=== PATIENT | female | born 1960 | race Caucasian/White ===

== ENCOUNTER 2018-08-15 15:45 | Outpatient (REF) | payer MEDICAID, SELFPAY ==
[2018-08-16 00:34] LABS: Bacteria Rare HPF (Negative); C & S Indicated? No; Crystals Negative HPF (Negative); Epithelial Cells Rare HPF (Negative); Mucus Negative (Negative); RBC 0-2 (0-2); WBC 0-2 HPF (0-5)
== END 2018-08-15 16:05 ==
LOC: NCHCN 15:45
PROVIDERS: PCP Physician Assistant Medical; Visit Provider Physician Assistant Medical
DX: R31.21 Asymptomatic microscopic hematuria (principal)
CPT/HCPCS: 81015

== ENCOUNTER 2018-08-17 00:03 | Outpatient (CLI) | payer MEDICAID, SELFPAY ==
--- NOTE | 2018-08-17 08:15 | MERGEMPI_ITS ---
*The * *[facility]* [address] [place] [address] Myocardial Perfusion Imaging - SPECT Rodrigo protocol Date of study: 08/17/2018 *PATIENT PRESENTATION* Height: 172.7cm (68in) Blood Pressure: Weight: 88.6kg (195lb) BSA: 2.09m^2 Referring physician: Ela Beard Ordering physician: Deandre Arzola V Impressions: Normal study after maximal exercise. Summary: 1. Myocardial perfusion imaging: No myocardial perfusion defects noted. 2. The calculated left ventricular ejection fraction after stress: 73%. LV global systolic function is normal. No left ventricular regional motion abnormality. 3. Stress: The target heart rate was achieved. Indication: RO7.9. History: REASON FOR TESTING: IN MID JULY PATIENT HAD 4-5 DAYS OF CONSISTANT AND PERSISTANT CHEST TIGHTNESS/PRESSURE/PAIN. TOWARD THE END OF THE 4 DAYS SHE REPORTS NAUSEA AND HEADACHE. SHE DENIES CHEST PAIN UPON ARRIVAL TODAY. SIGNIFICANT PAST MEDICAL HISTORY: STAGE 4 CIRROSIS. SMOKING STATUS: QUIT 1986. SMOKED FOR 8 YEARS 1 PPD. EXERCISE ROUTINE: DAILY ADL'S. Risk factors: Family history of coronary artery disease. Obesity. Dyslipidemia. ALLERGIES: CODEINE MEDICATIONS: SUPPLEMENTS. Imaging Technique: Protocol: Rodrigo protocol. Acquisition: Gated SPECT; 1 day - rest/stress. The patient was imaged in the supine position. Attenuation correction used. Isotope administration: - Rest. Tc[99m]-sestamibi. Dose: 10.3mCi. Injection time: 08:45 AM. Injection to stress time: 00:45. - Stress. Tc[99m]-sestamibi. Dose: 31.3mCi. Injection time: 11:15 AM. 1-2 min before end of exercise Baseline ECG: SINUS RHYTHM. HR 70 BPM. INVERTED T-WAVES IN LEAD AVL AND V1. PVC. Stress protocol: + +---+ + !Stage !HR !BP (mmHg) ! + +---+ + !Baseline supine !70 !118/80 (93) ! + +---+ + !Baseline standing !84 !126/80 (95) ! + +---+ + !Stage I; 1.7mph, 10degrees; 3 min !126!130/78 (95) ! + +---+ + !Stage II; 2.5mph, 12degrees; 3 min !135!140/70 (93) ! + +---+ + !Stage III; 3.4mph, 14degrees; 3 min!140!142/80 (101)! + +---+ + !Stage IV; 4.2mph, 16degrees; 3 min !143!170/80 (110)! + +---+ + !Recovery; 1 min !129!124/74 (91) ! + +---+ + !Recovery; 3 min !95 !120/80 (93) ! + +---+ + !Recovery; 6 min !92 !120/80 (93) ! + +---+ + !Recovery; 9 min !87 !100/76 (84) ! + +---+ + * Stress results: MODIFIED RODRIGO STRESS TEST ENDED IN 13 MINUTES 4 SECONDS DUE TO CHEST DISCOMFORT. PATIENT UNABLE TO SAFELY TRANSITION TO STAGE 3, PER PATIENT DUE TO FOOT NEUROPATHY. PATIENT REACHED TARGET HEART RATE AT 8 MINUTES 49 SECONDS OF MODIFIED STAGE 3 (GRADE 14/SPEED 2.5 MPH). NORMAL HEART RATE AND BLOOD PRESSURE RESPONSE TO EXERCISE. MAX HEART RATE: 143 88 % OF TARGET HEART RATE ACHIEVED. MET'S: 7.74 OCCASIONAL PVC'S AT BASELINE AND DURING TESTING. DULL CHEST PAIN ( 2/10) AT 11 MINUTES 10 SECONDS EXERCISE. DULL CHEST PAIN (3/10) AT 13 MINUTES EXERCISE. DULL CHEST PAIN (2/10) AT 1 MINUTE RECOVERY. CHEST PAIN SUBSIDED AT 4 MINUTES RECOVERY. FLUTTERING HEART SENSATION REPORTED AT 4 MINUTES RECOVERY. NO SIGNIFICANT ST SEGMENT CHANGES. FUNCTIONAL CAPACITY: ABOVE AVERAGE (ALTHOUGH THIS IS A MODIFIED RODRIGO TEST). Maximal heart rate during stress was 143bpm (88% of maximal predicted heart rate). The maximal predicted heart rate was 162bpm. The target heart rate was achieved. The rate-pressure product for the peak heart rate and blood pressure was 16121zr Hg/min. Myocardial perfusion: Imaging information: gated. Left ventricular size is normal. No myocardial perfusion defects noted. Ventricular Function (Wall Motion): The calculated left ventricular ejection fraction after stress: 73%. LV global systolic function is normal. No left ventricular regional motion abnormality. Study data: Ela Beard MD supervised and was readily available during the procedure. This study was interpreted by [facility]. Study status: Routine. Consent: The risks, benefits, and alternatives to the procedure were explained to the patient and informed consent was obtained. Procedure: Initial setup. A baseline ECG was recorded. Surface ECG leads and manual cuff blood pressure measurements were monitored. Heart sounds: Normal. Lung sounds: Normal. Treadmill exercise testing was performed using the Rodrigo protocol. Study completion: All catheters inserted during the procedure were removed. The patient tolerated the procedure well and was discharged from the lab. Discharge: The patient left the laboratory in stable condition. Birthdate: Patient birthdate: 1960. Sex: Gender: female. Study date: Study date: 08/17/2018. Study time: 08:15 AM. Signature Documentation: - The imaging portion of this study was interpreted by Nuclear Airborne Operations Manager Ela Beard MD. - The imaging portion of this study was interpreted by Nuclear Radiologist Sumit Medeiros MD. - The Stress ECG portion of this study was interpreted by Ela Beard MD. Electronically signed by Ela Beard 08/17/2018 12:44
== END 2018-08-17 00:23 ==
PROVIDERS: PCP Physician Assistant Medical; Visit Provider Physician Assistant Medical
DX: R07.89 Other chest pain (principal); E78.5 Hyperlipidemia, unspecified; I10 Essential (primary) hypertension; E11.9 Type 2 diabetes mellitus without complications; Z87.891 Personal history of nicotine dependence; Z82.49 Family history of ischemic heart disease and other diseases of the circulatory system
CPT/HCPCS: 78452; 93017

== ENCOUNTER 2019-02-07 11:08 | Outpatient (REF) | payer MEDICAID, SELFPAY ==
[2019-02-07 19:50] LABS: ALT 41 U/L (12-78); AST 26 U/L (15-37); Albumin 3.9 g/dL (3.4-5.0); Alkaline Phosphatase 109 U/L (46-116); Bilirubin, Total 0.9 mg/dL (0.2-1.0); Calculated LDL 170 mg/dL; Cholesterol 246 mg/dL (50-200); HDL Cholesterol 55 mg/dL (40-60); Total Protein 7.3 g/dL (6.4-8.2); Triglyceride 105 mg/dL (30-150)
[2019-02-07 20:20] LABS: Bilirubin, Direct 0.15 mg/dL (0.00-0.20)
== END 2019-02-07 11:28 ==
LOC: NCHCN 11:08
PROVIDERS: PCP Physician Assistant Medical; Visit Provider Nurse Practitioner Family
DX: K74.60 Unspecified cirrhosis of liver (principal); Z13.220 Encounter for screening for lipoid disorders
CPT/HCPCS: 80061; 80076; 83721

== ENCOUNTER 2019-03-21 18:53 | Outpatient (REF) | payer MEDICAID, SELFPAY ==
[2019-03-26 12:33] LABS: Helicobacter pylori Ag, Feces Negative (NEGAT)
== END 2019-03-21 19:13 ==
LOC: NCHCN 18:53
PROVIDERS: PCP Nurse Practitioner Family; Visit Provider Nurse Practitioner Family
DX: R10.9 Unspecified abdominal pain (principal)
CPT/HCPCS: 87338

== ENCOUNTER 2020-03-06 07:45 | Day surgery (SDC) | payer MEDICAID, SELFPAY ==
[2020-03-06 07:50] VITALS: BP 131/80; PULSE 79; RESP 16; TEMP 36.5; O2SAT 96
--- NOTE | 2020-03-06 08:27 | W.PM.DSUDISC ---
Discharge Plan Disposition Patient Disposition: HOME Condition: Good Discharge Details Attending Provider: Kris Guillen Primary Care Provider: Simran Schmidt Home Meds and New Rx's Prescriptions: No Action folic acid 0.4 MG tablet 0.4 mg PO DAILY RF: 0 esomeprazole magnesium [Nexium] 40 MG capsule,delayed release(DR/EC) 40 mg PO DAILY RF: 0 duloxetine [Cymbalta] 20 MG capsule,delayed release(DR/EC) 20 mg PO DAILY RF: 0 Fish Oil 1 EACH capsule 1 ea PO DAILY RF: 0 CHROMIUM GTF 200 mcg PO DAILY RF: 0 metoprolol succinate 25 MG tablet extended release 24 hr 25 mg PO DAILY RF: 0 cod liver oil Oil 15 ml PO DAILY RF: 0 Discharge Instructions Stand Alone Forms: Post-op Topical Cataract, Tierney Montague (DSU) Discharge Orders Discharge Orders: Discharge Order (Routine); Ordered 03/06/20 Ordered By: Kris Guillen DS: Diagnosis Discharge Diagnosis (1) Nuclear sclerotic cataract of right eye: Status: Resolved
[2020-03-06] MEDS: Povidone-Iodine Ophth 30 ML BTL ×2 (08:28→08:41)
[2020-03-06] MEDS: Tetracaine 0.5% 4 ML BTL OD (08:28)
[2020-03-06] MEDS: Balanced Salt Soln.-PLUS 500 ML BAG ×2 (08:29→08:44)
[2020-03-06] MEDS: Lidocaine 1% Pres-Free 5 ML VIAL ×2 (08:30→08:44)
[2020-03-06] MEDS: Lidocaine 2% Jelly 6 ML SYR ×2 (08:31→08:41)
[2020-03-06] MEDS: Moxifloxacin-PF 1 MG/ML VIAL ×2 (08:32→08:50)
--- NOTE | 2020-03-06 09:05 | ROE_ITS ---
Date of service: 03/06/20 Time of Service: 09:05 Operative Note Operative Note DATE OF PROCEDURE: 03/06/20 PRE-OP DIAGNOSIS: Nuclear cataract, right eye POST-OP DIAGNOSIS: same PROCEDURE: Cataract extraction using phacoemulsification with intraocular lens implant, right eye SURGEON: Kris Guillen ANESTHESIA: MAC and local (sub-tenon's anesthetic infiltration) ESTIMATED BLOOD LOSS: 0 PATHOLOGY: none sent COMPLICATIONS: None Patient was transported to: same day Patient's condition: stable Implants: Aleksandr and Aleksandr Vision / [employer] Tecnis ZCB00 intr aocular lens Indications: Progressive decreased vision due to cataract, right eye Procedure Description: CATARACT SURGERY OPERATIVE REPORT PREOPERATIVE DIAGNOSIS: Nuclear cataract, right eye POSTOPERATIVE DIAGNOSIS: Same OPERATION: Cataract extraction using phacoemulsification with posterior chamber intraocular lens implant, right eye. IOL: IOL Cylinder Valve Repairer/Model: [employer] Vision / RIKY Tecnis ZCB00 IOL Power: + 20.0 diopters IOL Serial Number: [id number] Optic Diameter: 6.0mm Haptic/Overall Diameter: 13.0mm PHACO INFO: Germain [employer] Mobileurion Vision System with OZil and Active Fluidics Cumulative Dispersed Energy (CDE): 0.26 seconds SURGEON: Kris Guillen MD, KIMMIE ANESTHESIA: Monitored Anesthesia Care (MAC), with local sub-tenon's anesthetic infiltration COMPLICATIONS: None SPECIMENS: None INDICATIONS FOR PROCEDURE: The patient is a 50 history of diminished visual acuity in her right eye. She has a moderate nuclear cataract. The cataract proceed. PROCEDURE: The correct surgical eye was identified and marked as the right eye and the pupil was dilated in the preoperative area using mydriatics and cycloplegics. The dilated pupil size was 8.0 mm. Oral sedation was administered in the form of an Imprimis MKO Melt (midazolam 3mg/ketamine 25mg/ondansetron 2mg). The patient was brought to the operating room where cardiopulmonary monitoring was instituted and surgical time-out was performed, confirming the correct operative eye and IOL power. Topical anesthesia was administered and ophthalmic povidone-iodine 5% was instilled into the conjunctival fornices. Lidocaine gel was applied to the cornea and the eliane-ocular area was prepped with Betadine 10% solution and draped in the usual sterile fashion for intraocular surgery, including an aperture drape. A Tegaderm transparent film dressing was cut in half and used to cover the lashes and lid margins. Care was taken to sequester the lashes and lid margins under the Tegaderm dressing. A lid speculum was placed between the lids of the operative eye and the Rubia-Jenni operating microscope was maneuvered into position. Carlene scissors were then used to make a conjunctival buttonhole approximately 6mm posterior to the limbus in the inferonasal quadrant. Blunt dissection was c arried out to expose bare sclera, and a blunt-tipped sub-tenon?s anesthesia cannula was introduced and passed posteriorly along the globe where non- preserved plain lidocaine was injected into posterior sub-Tenon?s space. A sideport knife was used to make a paracentesis port inferiortemporally. Intraocular phenylephrine/lidocaine was injected into the anterior chamber. The anterior chamber was then filled with Healon Pro. A 2.4mm keratome knife was used to create a half-thickness groove at the limbus and then to construct a three-plane near-clear corneal tunnel extending 2.0mm into clear cornea in the superiortemporal position. . A flap was raised on the anterior capsule and capsulorhexis forceps were used to complete a continuous curvilinear capsulorhexis of 5.5 mm. Balanced salt solution was then used to perform cortical cleaving hydrodissection and nuclear hydrodelineation until the lens could be freely rotated within the capsular bag. The lens nucleus was then disassembled and removed within the capsular bag and iris plane using phacoemulsification. Residual cortical material was removed using the I/A handpiece. The posterior capsule was carefully polished to remove as much residual lens epithelial cells as safely possible. The capsular bag was then inflated and the anterior chamber deepened with viscoelastic. The lens implant described above was inserted into the capsular bag using the RIKY [place] Injector. A Kuglen hook was used to dial the IOL into position. Residual viscoelastic was then removed first from posterior to the IOL, then from the anterior chamber using the I/A handpiece. The lens implant was noted to center nicely within the capsular bag. The incisions were stromally hydrated, and the anterior chamber was reformed using BSS. Then 0.5cc of moxifloxacin 1.0mg/ml were injected into the capsular bag and anterior chamber. The incisions were checked with a Weck spear and found to be secure. Several drops of ophthalmic povidone-iodine 5% were then applied to the eye followed by two drops of Imprimis combination prednisolone/moxifloxacin/nepafenac solution. The drapes were removed and a clear plastic protective eye shield was placed over the eye. The patient was then returned to Same Day Surgery in stable condition.
== END 2020-03-06 09:40 | disposition home or self-care (01) ==
PROVIDERS: PCP Nurse Practitioner Family; Visit Provider Ophthalmology
PROC: (CPT 66984; principal; 2020-03-06 09:30)
DX: H25.11 Age-related nuclear cataract, right eye (principal)
CPT/HCPCS: 66984; V2632

== ENCOUNTER 2020-03-20 09:01 | Day surgery (SDC) | payer MEDICAID, SELFPAY ==
[2020-03-20 09:09] VITALS: BP 128/82; PULSE 80; RESP 20; TEMP 36.5; O2SAT 96
--- NOTE | 2020-03-20 09:37 | W.PM.DSUDISC ---
Discharge Plan Disposition Patient Disposition: HOME Condition: Good Discharge Details Attending Provider: Kris Guillen Primary Care Provider: Simran Schmidt Home Meds and New Rx's Prescriptions: No Action folic acid 0.4 MG tablet 0.4 mg PO DAILY RF: 0 Fish Oil 1 EACH capsule 1 ea PO DAILY RF: 0 CHROMIUM GTF 200 mcg PO DAILY RF: 0 cod liver oil Oil 15 ml PO DAILY RF: 0 Discharge Instructions Stand Alone Forms: Post-op Topical Cataract, Tierney Montague (DSU) Discharge Orders Discharge Orders: Discharge Order (Routine); Ordered 03/20/20 Ordered By: Kris Guillen DS: Diagnosis Discharge Diagnosis (1) Nuclear sclerotic cataract of left eye: Status: Resolved
[2020-03-20] MEDS: Tetracaine 0.5% 4 ML BTL OS (09:50)
[2020-03-20] MEDS: Balanced Salt Soln.-PLUS 500 ML BAG (09:50)
[2020-03-20] MEDS: Lidocaine 1% Pres-Free 5 ML VIAL (09:51)
[2020-03-20] MEDS: Lidocaine 2% Jelly 6 ML SYR (09:52)
[2020-03-20] MEDS: Moxifloxacin-PF 1 MG/ML VIAL (09:52)
[2020-03-20] MEDS: Povidone-Iodine Ophth 30 ML BTL (09:53)
--- NOTE | 2020-03-20 10:15 | ROE_ITS ---
Date of service: 03/20/20 Time of Service: 10:15 Operative Note Operative Note DATE OF PROCEDURE: 03/20/20 PRE-OP DIAGNOSIS: Nuclear/cortical cataract, left eye POST-OP DIAGNOSIS: same PROCEDURE: Cataract extraction using phacoemulsification with intraocular lens implant, left eye SURGEON: Kris Guillen ANESTHESIA: MAC and local (sub-tenon's anesthetic infiltration) PATHOLOGY: none sent COMPLICATIONS: None Patient was transported to: same day Patient's condition: stable Implants: Aleksandr and Aleksandr Vision / [employer] Tecnis ZCB00 Indications: Progressive decreased vision due to cataract, left eye Procedure Description: CATARACT SURGERY OPERATIVE REPORT PREOPERATIVE DIAGNOSIS: Nuclear/cortical cataract, left eye POSTOPERATIVE DIAGNOSIS: Same OPERATION: Cataract extraction using phacoemulsification with posterior chamber intraocular lens implant, left eye. IOL: IOL Shape Hand/Model: J&J Vision / RIKY Tecnis ZCB00 IOL Power: + 20.0 diopters IOL Serial Number: [id number] Optic Diameter: 6.0mm Haptic/Overall Diameter: 13.0mm PHACO INFO: Germain [employer]urion Vision System with OZil and Active Fluidics Cumulative Dispersed Energy (CDE): 0.7% seconds SURGEON: Kris Guillen MD, KIMMIE ANESTHESIA: Monitored Anesthesia Care (MAC), with local sub-tenon's anesthetic infiltration COMPLICATIONS: None SPECIMENS: None INDICATIONS FOR PROCEDURE: The patient is a 59-year-old lady with history of progressive decreased vision in both eyes bilateral cortical cataract she significantly symptomatic that she desired She has already undergone cataract surgery in the right eye and is doing well postoperatively PROCEDURE: The correct surgical eye was identified and marked as the left eye and the pupil was dilated in the preoperative area using mydriatics and cycloplegics. The dilated pupil size was 7.0 mm. Oral sedation was administered in the form of an Imprimis MKO Melt (midazolam 3mg/ketamine 25mg/ondansetron 2mg). The patient was brought to the operating room where cardiopulmonary monitoring was instituted and surgical time-out was performed, confirming the correct operative eye and IOL power. Topical anesthesia was administered and ophthalmic povidone-iodine 5% was instilled into the conjunctival fornices. Lidocaine gel was applied to the cornea and the eliane-ocular area was prepped with Betadine 10% solution and draped in the usual sterile fashion for intraocular surgery, including an aperture drape. A Tegaderm transparent film dressing was cut in half and used to cover the lashes and lid margins. Care was taken to sequester the lashes and lid margins under the Tegaderm dressing. A lid speculum was placed between the lids of the operative eye and the Rubia-Jenni operating microscope was maneuvered into position. Carlene scissors were then used to make a conjunctival buttonhole approximately 6mm posterior to the limbus in the inferonasal quadrant. Blunt dissection was carried out to expose bare sclera, and a blunt-tipped sub-tenon?s anesthesia cannula was introduced and passed posteriorly along the globe where non- preserved plain lidocaine was injected into posterior sub-Tenon?s space. A sideport knife was used to make a paracentesis port superior/superiortemporally. Intraocular phenylephrine/lidocaine was injected into the anterior chamber. The anterior chamber was then filled with Healon Pro. A 2.4mm keratome knife was used to create a half-thickness groove at the limbus and then to construct a three-plane near-clear corneal tunnel extending 2.0mm into clear cornea in the temporal position. . A flap was raised on the anterior capsule and capsulorhexis forceps were used to complete a continuous curvilinear capsulorhexis of 5.0 mm. Balanced salt solution was then used to perform cortical cleaving hydrodissection and nuclear hydrodelineation until the lens could be freely rotated within the capsular bag. The lens nucleus was then disassembled and removed within the capsular bag and iris plane using phacoemulsification. Residual cortical material was removed using the 45-degree angled silicone I/A tip with 0.3mm port. The posterior capsule was carefully polished to remove as much residual lens epithelial cells as safely possible. The capsular bag was th en inflated and the anterior chamber deepened with viscoelastic. The lens implant described above was inserted into the capsular bag using the RIKY [place] Injector. A Kuglen hook was used to dial the IOL into position. Residual viscoelastic was then removed first from posterior to the IOL, then from the anterior chamber using the I/A handpiece. The lens implant was noted to center nicely within the capsular bag. The incisions were stromally hydrated, and the anterior chamber was reformed using BSS. Then 0.5cc of moxifloxacin 1.0mg/ml were injected into the capsular bag and anterior chamber. The incisions were checked with a Weck spear and found to be secure. Several drops of ophthalmic povidone-iodine 5% were then applied to the eye followed by two drops of Imprimis combination prednisolone/moxifloxacin/nepafenac solution. The drapes were removed and a clear plastic protective eye shield was placed over the eye. The patient was then returned to Same Day Surgery in stable condition.
[2020-03-20 10:41] VITALS: BP 125/78; PULSE 73; RESP 16; TEMP 36.5; O2SAT 97
== END 2020-03-20 10:40 | disposition home or self-care (01) ==
PROVIDERS: PCP Nurse Practitioner Family; Visit Provider Ophthalmology
PROC: (CPT 66984; principal; 2020-03-20 11:30)
DX: H25.12 Age-related nuclear cataract, left eye (principal); H25.012 Cortical age-related cataract, left eye; Z96.1 Presence of intraocular lens; Z98.41 Cataract extraction status, right eye
CPT/HCPCS: 66984; V2632

== ENCOUNTER 2021-01-07 12:55 | Outpatient (REF) | payer MEDICAID, SELFPAY ==
[2021-01-07 18:55] LABS: Abs Immature Grans 0.01 10^3/uL (0.0-0.06); Absolute Basophil Count 0.03 10^3/uL (0.0-0.2); Absolute Lymphocyte Count 2.29 10^3/uL (1.2-3.4); Absolute Monocyte Count 0.54 10^3/uL (0.1-0.8); Absolute Neutrophil Count 3.72 10^3/uL (1.2-6.7); Basophils % 0.4; Eosinophils % 2.9; HCT 43.7 % (36.0-46.0); HGB 14.7 g/dL (11.2-15.7); Immature Grans % 0.1; Lymphocytes % 33.7; MCH 31.3 pg (27.0-33.0); MCHC 33.6 % (32.0-36.0); MPV 11.2 fL (8.0-11.0); Neutrophils % 54.9; Nucleated RBC 0 %; Platelet Count 195 10^3/uL (130-400); RDW 11.9 % (11.7-14.6); RDW-SD 40.8 fL; WBC 6.79 10^3/uL (4.4-10.8)
[2021-01-07 19:13] LABS: Iron 111 ug/dL (50-170); Total Iron Binding Capacity 287 ug/dL (250-450); Transferrin Sat 39 % (15-50)
[2021-01-07 19:20] LABS: Hemoglobin A1C 7.6 % (<5.7)
[2021-01-07 19:26] LABS: Microalb ug/mg Crea 5.8 ug/mg Cr
[2021-01-07 19:39] LABS: ALT 58 U/L (14-59); AST 33 U/L (15-37); Albumin 3.9 g/dL (3.4-5.0); Alkaline Phosphatase 122 U/L (46-116); Anion Gap 9.8 mmol/L (3-11); BUN 9 mg/dL (7-18); Bilirubin, Total 0.6 mg/dL (0.2-1.0); CO2 25.2 mmol/L (21.0-32.0); CREATININE 0.8 mg/dL (0.55-1.02); Calcium 8.9 mg/dL (8.5-10.1); Chloride 103 mmol/L (98-107); Ferritin 99 ng/mL (8-252); Glucose 203 mg/dL (74-106); LDL CHOLESTEROL 179 mg/dL (<100); Magnesium 2.1 mg/dL (1.8-2.4); Potassium 4.5 mmol/L (3.5-5.1); Sodium 138 mmol/L (136-145); TSH (W/Ref FT4) 1.05 uIU/mL (0.36-3.74); Total Protein 7.7 g/dL (6.4-8.2); Vitamin B12 841 pg/mL (193-986)
== END 2021-01-07 12:56 | disposition home or self-care (01) ==
LOC: NCHCN 12:55
PROVIDERS: PCP Nurse Practitioner Family; Visit Provider Physician Assistant
DX: E11.65 Type 2 diabetes mellitus with hyperglycemia (principal); E11.40 Type 2 diabetes mellitus with diabetic neuropathy, unspecified; M62.838 Other muscle spasm; E78.5 Hyperlipidemia, unspecified; K70.30 Alcoholic cirrhosis of liver without ascites; M79.7 Fibromyalgia
CPT/HCPCS: 80053; 83721; 82043; 82570; 82607; 82728; 83036; 83540; 83550; 83735; 84443; 85025

== ENCOUNTER 2021-10-08 11:29 | Outpatient (REF) | payer MEDICAID, SELFPAY ==
--- NOTE | 2021-10-08 11:15 | PAPFT_PTH ---
PATIENT: Veronica Goel LOC: [facility]#:[id number] AGE/SX: 61/F ROOM: RE10/08/[address]: Beth Posada : 1960 BED: DIS: 10/08/2021 SPEC #: [id number] RECD: 10/08/21 18:35 STATUS: CELIA REQ #: [id number] JULIET: 10/08/21 11:[address]: Beth Posada DEPT: [facility] Cytology RECD BY: Kiera Gruber ENTERED: 10/08/21 18:36 SP TYPE: PAPFT OTHR DR: Simran Schmidt Tissues: 1 - CX/ENDOCX FOR PAP SMEARS Procedures: PAP THIN PREP/UVM Screening HPV DNA PROBE Comments: [id number]
== END 2021-10-08 11:30 | disposition home or self-care (01) ==
LOC: NCHCN 11:29
PROVIDERS: PCP Nurse Practitioner Family; Visit Provider Physician Assistant
DX: Z12.4 Encounter for screening for malignant neoplasm of cervix (principal); Z11.51 Encounter for screening for human papillomavirus (HPV)
CPT/HCPCS: 88142; 87624

== ENCOUNTER 2021-10-08 16:50 | Outpatient (REF) | payer MEDICAID, SELFPAY ==
[2021-10-08 19:20] LABS: ALT 51 U/L (14-59); AST 37 U/L (15-37); Albumin 3.8 g/dL (3.4-5.0); Alkaline Phosphatase 113 U/L (46-116); Anion Gap 8.3 mmol/L (3-11); BUN 11 mg/dL (7-18); Bilirubin, Total 0.6 mg/dL (0.2-1.0); CO2 26.7 mmol/L (21.0-32.0); CREATININE 0.8 mg/dL (0.55-1.02); Calcium 9.1 mg/dL (8.5-10.1); Chloride 101 mmol/L (98-107); Glucose 150 mg/dL (74-106); Potassium 4.5 mmol/L (3.5-5.1); Sodium 136 mmol/L (136-145); Total Protein 7.6 g/dL (6.4-8.2)
[2021-10-08 19:23] LABS: COMMENT (LAB VIEW ONLY) 30.91 mg/dL
[2021-10-08 19:31] LABS: LDL CHOLESTEROL 189 mg/dL (<100)
== END 2021-10-08 16:51 | disposition home or self-care (01) ==
LOC: NCHCN 16:50
PROVIDERS: PCP Nurse Practitioner Family; Visit Provider Physician Assistant
DX: E11.65 Type 2 diabetes mellitus with hyperglycemia (principal); E78.5 Hyperlipidemia, unspecified
CPT/HCPCS: 80053; 83721; 82043; 82570

== ENCOUNTER 2022-11-25 16:19 | Outpatient (REF) | payer MEDICAID, SELFPAY ==
[2022-11-25 18:59] LABS: Abs Immature Grans 0.01 10^3/uL (0.0-0.06); Absolute Basophil Count 0.04 10^3/uL (0.0-0.2); Absolute Eosinophil Count 0.23 10^3/uL (0.0-0.7); Absolute Lymphocyte Count 2.33 10^3/uL (1.2-3.4); Absolute Monocyte Count 0.66 10^3/uL (0.1-0.8); Absolute Neutrophil Count 2.94 10^3/uL (1.2-6.7); Basophils % 0.6; Eosinophils % 3.7; HCT 42.8 % (36.0-46.0); HGB 14.7 g/dL (11.2-15.7); Immature Grans % 0.2; Lymphocytes % 37.5; MCH 32.1 pg (27.0-33.0); MCHC 34.3 % (32.0-36.0); MCV 93 fL (80-95); MPV 10.2 fL (8.0-11.0); Monocytes % 10.6; Neutrophils % 47.4; Platelet Count 197 10^3/uL (130-400); RBC 4.58 10^6/uL (3.93-5.22); WBC 6.21 10^3/uL (4.4-10.8)
[2022-11-25 19:12] LABS: INR 0.9 (0.9-1.1); Prothrombin Time 9.2 sec (9.3-11.0)
[2022-11-25 19:37] LABS: ALT 48 U/L (14-59); AST 32 U/L (15-37); Albumin 3.6 g/dL (3.4-5.0); Alkaline Phosphatase 116 U/L (46-116); Anion Gap 3.6 mmol/L (3-11); BUN 10 mg/dL (7-18); Bilirubin, Total 0.5 mg/dL (0.2-1.0); CO2 27.4 mmol/L (21.0-32.0); CREATININE 0.9 mg/dL (0.55-1.02); Calcium 9.1 mg/dL (8.5-10.1); Chloride 105 mmol/L (98-107); Estimated GFR 72.28 (mL/min/1.73m2); Glucose 99 mg/dL (74-106); Potassium 3.9 mmol/L (3.5-5.1); Sodium 136 mmol/L (136-145); Total Protein 7.9 g/dL (6.4-8.2)
== END 2022-11-25 16:20 | disposition home or self-care (01) ==
LOC: NCHCN 16:19
PROVIDERS: PCP Nurse Practitioner Family; Visit Provider Physician Assistant
DX: E11.65 Type 2 diabetes mellitus with hyperglycemia (principal); K70.30 Alcoholic cirrhosis of liver without ascites
CPT/HCPCS: 80053; 85025; 85610

== ENCOUNTER 2023-04-26 15:43 | Outpatient (REF) | payer MEDICAID, SELFPAY ==
[2023-04-27 18:08] LABS: Rheumatoid Factor <8.6 IU/mL (<12.0)
[2023-04-28 09:10] LABS: Cyclic Citrullinated Peptide <2.5 U/mL (<5.0)
[2023-04-28 13:47] LABS: ANA Interpretation Negative (Negative)
== END 2023-04-26 15:44 | disposition home or self-care (01) ==
LOC: NCHCN 15:43
PROVIDERS: PCP Nurse Practitioner Family; Visit Provider Physician Assistant
DX: M79.18 Myalgia, other site (principal); M79.7 Fibromyalgia; M54.2 Cervicalgia
CPT/HCPCS: 86200; 86038; 86431

== ENCOUNTER 2024-02-08 10:59 | Outpatient (CLI) | payer BC, SELFPAY ==
--- NOTE | 2024-02-08 09:30 | DI.RAD_ITS ---
Exam(s) XR KNEE LT 1V XR STANDING ALIGNMENT EXAM: XR STANDING ALIGNMENT and XR knee LT 1 V CLINICAL HISTORY: knee pain. TECHNIQUE: 2D digital imaging was performed. Five images were obtained. COMPARISON: CR XR KNEE COMPLETE MIN 4V LT from 01/05/2023 CR XR KNEE 1 OR 2V RT from 01/26/2023 CR XR KNEE COMPLETE MIN 4V LT from 12/27/2023 CR XR KNEE LT 1V from 02/08/2024 FINDINGS: BONES: The hips are well maintained. The right knee is well maintained with minimal joint space narr owing. In the left knee, there is marked narrowing of the lateral femoral tibial joint and mild narr owing of the medial femoral tibial joint. Osteophytes are seen both medially and laterally. There i s also narrowing of the patellofemoral joint. There is a small joint effusion. There is an old side plate and screws in the proximal tibia. The ankles are well maintained.There is no significant leg l ength discrepancy. SOFT TISSUE: Vascular calcifications are present. IMPRESSION: Degenerative changes in the knee, left greater than right as described. DATA REPOSITORY: RADIATION DOSE DELIVERED:
== END 2024-02-08 11:00 | disposition home or self-care (01) ==
LOC: DIORS 11:00
PROVIDERS: PCP Physician Assistant; Referring Provider Physician Assistant; Visit Provider Physician Assistant
DX: M25.562 Pain in left knee (principal); M25.561 Pain in right knee; M17.11 Unilateral primary osteoarthritis, right knee; M17.12 Unilateral primary osteoarthritis, left knee
CPT/HCPCS: 73560; 77073

== ENCOUNTER 2024-03-07 03:35 | Outpatient (CLI) | payer BC, SELFPAY ==
[2024-03-07 10:54] LABS: HCT 45.1 % (36.0-46.0); HGB 15.2 g/dL (11.2-15.7); MCHC 33.7 % (32.0-36.0); MCV 92 fL (80-95); MPV 9.6 fL (8.0-11.0); Platelet Count 177 10^3/uL (130-400); RDW 11.4 % (11.7-14.6); RDW-SD 38.9 fL; WBC 6.98 10^3/uL (4.4-10.8)
[2024-03-07 11:16] LABS: Anion Gap 8.6 mmol/L (3-11); BUN 8 mg/dL (7-18); CO2 26.4 mmol/L (21.0-32.0); CREATININE 0.9 mg/dL (0.55-1.02); Calcium 9.6 mg/dL (8.5-10.1); Chloride 100 mmol/L (98-107); Estimated GFR 71.83 (mL/min/1.73m2); Glucose 219 mg/dL (74-106); Potassium 4.1 mmol/L (3.5-5.1); Sodium 135 mmol/L (136-145)
== END 2024-03-07 03:36 | disposition home or self-care (01) ==
LOC: LBO 03:35
PROVIDERS: Physician Assistant; PCP Physician Assistant; Visit Provider Student in an Organized Health Care Education/Training Program
DX: M17.32 Unilateral post-traumatic osteoarthritis, left knee (principal); Z01.818 Encounter for other preprocedural examination; E11.9 Type 2 diabetes mellitus without complications
CPT/HCPCS: 36415; 80048; 85027

== ENCOUNTER 2024-03-29 15:44 | Outpatient (REF) | payer BC, SELFPAY ==
[2024-04-01 19:35] LABS: Fructosamine 298 mcmol/L (200 - 285)
== END 2024-03-29 15:45 | disposition home or self-care (01) ==
LOC: NCHCN 15:44
PROVIDERS: PCP Physician Assistant; Visit Provider Internal Medicine
DX: E11.65 Type 2 diabetes mellitus with hyperglycemia (principal)
CPT/HCPCS: 82985

== ENCOUNTER 2025-03-05 19:46 | Outpatient (REF) | payer BC, SELFPAY ==
[2025-03-05 20:37] LABS: ESR 20 mm/hr (0-30)
[2025-03-05 20:39] LABS: HCT 42.3 % (36.0-46.0); HGB 14.4 g/dL (11.2-15.7); MCH 31.1 pg (27.0-33.0); MCHC 34.0 % (32.0-36.0); MCV 91 fL (80-95); MPV 10.5 fL (8.0-11.0); Platelet Count 221 10^3/uL (130-400); RBC 4.63 10^6/uL (3.93-5.22); RDW 11.8 % (11.7-14.6); RDW-SD 39.6 fL; WBC 6.80 10^3/uL (4.4-10.8)
[2025-03-05 20:52] LABS: ALT 35 U/L (14-59); AST 31 U/L (15-37); Albumin 3.8 g/dL (3.4-5.0); Alkaline Phosphatase 92 U/L (46-116); Anion Gap 9.2 mmol/L (3-11); BUN 7 mg/dL (7-18); Bilirubin, Total 0.6 mg/dL (0.2-1.0); CO2 26.8 mmol/L (21.0-32.0); Calcium 9.2 mg/dL (8.5-10.1); Calculated LDL 145 mg/dL (<100); Chloride 100 mmol/L (98-107); Cholesterol 219 mg/dL (<200); Estimated GFR 96.52 (mL/min/1.73m2); Glucose 82 mg/dL (74-106); HDL Cholesterol 58 mg/dL (>or=50); Potassium 4.4 mmol/L (3.5-5.1); Sodium 136 mmol/L (136-145); Total Protein 7.6 g/dL (6.4-8.2); Triglyceride 82 mg/dL (<150)
[2025-03-05 23:19] LABS: C-Reactive Protein < 0.50 mg/dL (<or=0.5)
== END 2025-03-05 19:47 | disposition home or self-care (01) ==
LOC: NCHCN 19:46
PROVIDERS: PCP Physician Assistant; Visit Provider Internal Medicine
DX: K70.30 Alcoholic cirrhosis of liver without ascites (principal); E78.5 Hyperlipidemia, unspecified; M79.7 Fibromyalgia
CPT/HCPCS: 80053; 80061; 85027; 85652; 86140

== ENCOUNTER 2025-04-01 15:07 | Outpatient (REF) | payer BC, SELFPAY ==
--- NOTE | 2025-04-01 07:42 | SKI_PTH ---
PATIENT: Veronica Goel LOC: [facility] U#:[id number] AGE/SX: 64/F ROOM: RE04/01/[address]: Matty Oropeza MD : 1960 BED: DIS: 04/01/2025 SPEC #: [id number] RECD: 04/01/25 16:52 STATUS: CELIA PATIÑO #: [id number] JULIET: 04/01/25 07:[address]: Matty Oropeza DEPT: Surgical Specimen RECD BY: Kiera Gruber ENTERED: 04/01/25 16:52 SP TYPE: OLVIN BOWEN DR: Beth Posada Tissues: 1 - SKIN BIOPSY(SHAVE/PUNCH) Procedures: SKIN LEVEL 4 Comments: [id number]
== END 2025-04-01 15:08 | disposition home or self-care (01) ==
LOC: LBN 15:07
PROVIDERS: PCP Physician Assistant; Visit Provider Otolaryngology
DX: L98.9 Disorder of the skin and subcutaneous tissue, unspecified (principal)
CPT/HCPCS: 88305